=== PATIENT | female | born 1985 | race Caucasian/White ===

== ENCOUNTER 2017-02-08 22:53 | Inpatient (IN) | payer MEDICAID ==
[~2017-02-08] VITALS: Ht 157.5 cm; Wt 79.9 kg
[2017-02-08 23:31] LABS: BASOPHILS % (AUTO) 0.2 % (0.0-2.0); EOSINOPHILS % (AUTO) 0 % (1.0-6.0); HEMATOCRIT 42.5 % (36-46); HEMOGLOBIN 13.7 g/dL (12.0-16.0); LYMPHOCYTES # (AUTO) 0.9 K/uL (1.0-4.8); LYMPHOCYTES % (AUTO) 6.9 % (22.0-44.0); MEAN CORPUSCULAR HEMOGLOBIN 27.5 pg (26.0-34.0); MEAN CORPUSCULAR HGB CONC 32.2 G/dL (31.0-37.0); MEAN CORPUSCULAR VOLUME 85 fL (80-100); MONOCYTES # (AUTO) 0.2 K/uL (0.1-1.0); MONOCYTES % (AUTO) 1.8 % (2.0-9.0); NEUTROPHILS # (AUTO) 11.8 K/uL (1.8-7.7); PLATELET COUNT (AUTO) 420 K/uL (150-450); RED BLOOD CELL COUNT(AUTO) 4.98 MIL/uL (4.00-5.20); RED CELL DISTRIBUTION WIDTH 12.8 % (11.5-14.5)
[2017-02-08 23:39] LABS: NEUTROPHILS % (AUTO) 91.1 % (40.0-70.0)
[2017-02-08 23:45] LABS: ANION GAP 10 mmol/L (8-16); CALCIUM, TOTAL 8.8 mg/dL (8.8-10.5); CARBON DIOXIDE 29 mmol/L (22-29); CHLORIDE 99 mmol/L (98-107); CREATININE 0.72 mg/dL (0.60-1.30); GLOMERULAR FILTR. RATE CALC > 60 mL/min (>60); POTASSIUM 3.9 mmol/L (3.5-5.1); SODIUM SERUM 138 mmol/L (136-145); UREA NITROGEN, BLOOD 12 mg/dL (7-18)
[2017-02-08 23:51] LABS: ALANINE AMINOTRANSFERASE 44 U/L (12-78); AMYLASE 47 U/L (25-115); ASPARTATE AMINOTRANSFERASE 17 U/L (15-37); BILIRUBIN,TOTAL 0.6 mg/dL (0.1-1.0); TOTAL PROTEIN, SERUM 7.9 g/dL (6.4-8.2)
[2017-02-09 00:02] LABS: APPEARANCE,URINE CLEAR (CLEAR); GLUCOSE, URINE (UA) NEGATIVE (NEGATIVE); KETONES,URINE NEGATIVE (NEGATIVE); LEUKOCYTE ESTERASE ,URINE NEGATIVE (NEGATIVE); OCCULT BLOOD,URINE TRACE (NEGATIVE); PROTEIN,URINE POS 1+ (NEGATIVE)
[2017-02-09 00:03] LABS: ADD UA MICROSCOPIC YES
[2017-02-09 00:36] LABS: SQUAMOUS EPITHELIAL CELL,UR Rare /LPF (None Seen); WBC,URINE 0-2 /HPF (0-5)
[2017-02-09] MEDS ORDERED: MORPHINE SULFATE 4 MG/ML SYRINGE IVP ONE ×2 (00:45→04:30)
[2017-02-09] MEDS ORDERED: ONDANSETRON HCL 4 MG/2 ML VIAL IVP ONE (00:45)
[2017-02-09] MEDS ORDERED: SODIUM CHLORIDE 0.9% 1,000 ML IV ONE (00:45)
[2017-02-09] MEDS ORDERED: BARIUM SULFATE 0.1% SUSPENSION 450 ML BOTTLE PO ONE (01:00)
[2017-02-09] MEDS ORDERED: IOVERSOL 320 MG/ML 100 ML VIAL ONE (02:08)
[2017-02-09] MEDS ORDERED: SODIUM CHLORIDE 0.9% 100 ML ONE (02:08)
[2017-02-09] MEDS ORDERED: ONDANSETRON HCL 4 MG/2 ML VIAL IVP PRN (04:15)
[2017-02-09] MEDS ORDERED: 0.9% SODIUM CHLORIDE 10 ML SYRINGE IVP PRN (04:15)
[2017-02-09] MEDS ORDERED: MORPHINE SULFATE 4 MG/ML SYRINGE IVP PRN ×2 (04:15→05:45)
[2017-02-09] MEDS ORDERED: PIPERACILLIN/TAZO 3.375 GM/D5W 50 ML IV SCH (04:30)
[2017-02-09 04:33] LABS: INR 1.1 (0.9-1.1)
[2017-02-09 05:29] VITALS: BP 149/85
[2017-02-09] MEDS ORDERED: ONDANSETRON HCL 4 MG/2 ML VIAL IM PRN (05:45)
[2017-02-09] MEDS ORDERED: DEXTROSE 5%-0.45% SODIUM CHL 1,000 ML IV SCH (05:45)
[2017-02-09 08:18] VITALS: BP 111/77
[2017-02-09] MEDS ORDERED: BUPIVACAINE 0.25%/EPI 1:200,000/PF 10 ML VIAL ONE (08:49)
[2017-02-09] MEDS ORDERED: RINGERS SOLUTION,LACTATED 1,000 ML IV ONE (08:49)
[2017-02-09] MEDS ORDERED: OXYGEN THERAPY IH SCH (09:30)
[2017-02-09] MEDS ORDERED: MEPERIDINE-PF 25 MG/ML SYRINGE IVP PRN (09:30)
[2017-02-09] MEDS ORDERED: HYDROmorphone 2 MG/ML SYRINGE IVP PRN (09:30)
[2017-02-09] MEDS ORDERED: FentaNYL CITRATE-PF 100 MCG/2 ML VIAL IVP PRN (09:30)
[2017-02-09 11:00] VITALS: BP 118/76
[2017-02-09] MEDS ORDERED: HYDR-309 PO (14:38)
[2017-02-09] MEDS ORDERED: DOCU-119 PO (14:39)
[2017-02-09] MEDS ORDERED: PROPOFOL 1% 20 ML VIAL IVP ONE (15:14)
[2017-02-09] MEDS ORDERED: MIDAZOLAM HCL 2 MG/2 ML VIAL IVP ONE (15:14)
[2017-02-09] MEDS ORDERED: GLYCOPYRROLATE 0.2 MG/ML VIAL IM ONE (15:14)
[2017-02-09] MEDS ORDERED: DEXAMETHASONE SOD PHOS 4 MG/ML VIAL IVP ONE (15:14)
[2017-02-09] MEDS ORDERED: LIDOCAINE HCL/PF 1% 2 ML VIAL INJ ONE (15:14)
[2017-02-09] MEDS ORDERED: KETOROLAC TROMETHAMINE 60 MG/2 ML VIAL IM ONE (15:14)
[2017-02-09] MEDS ORDERED: NEOSTIGMINE METHYLSULFATE 1 MG/ML 10 ML VIAL IVP ONE (15:14)
[2017-02-09] MEDS ORDERED: FentaNYL CITRATE-PF 100 MCG/2 ML VIAL IVP ONE (15:14)
[2017-02-09] MEDS ORDERED: ROCURONIUM BROMIDE 10 MG/ML 5 ML VIAL IVP ONE (15:14)
[2017-02-09] MEDS ORDERED: METOCLOPRAMIDE HCL 5 MG/ML 2 ML VIAL IVP ONE (15:14)
== END 2017-02-09 15:15 | disposition home or self-care (01) | DRG 225 ==
LOC: EMS 22:54 → 6N 02-09 04:28
PROVIDERS: ADMIT Surgery; ATTEND Surgery
PROC: 0DTJ4ZZ Resection of Appendix, Percutaneous Endoscopic Approach (ICD-10-PCS; principal; 2017-02-09 09:00)
DX: K35.80 Unspecified acute appendicitis (principal); K76.0 Fatty (change of) liver, not elsewhere classified
CPT/HCPCS: 74177; 81025; 87081; 88304; 96361; 96365; 96375; 96376; 99285; J1100; J1885; J2250; J2270; J2405; J2543; J2704; J2765; J3010; J3490; J7030; J7050; J7120

== ENCOUNTER 2017-09-06 13:59 | Emergency (ER) | payer SELFPAY ==
[~2017-09-06] VITALS: Ht 157.5 cm; Wt 75.0 kg
[~2017-09-06 13:59] MED LIST: DOCU-119 PO; HYDR-309 PO
[2017-09-06 14:30] VITALS: BP 137/94
[2017-09-06] MEDS ORDERED: KETOROLAC TROMETHAMINE 60 MG/2 ML VIAL IM ONE (16:30)
[2017-09-06] MEDS ORDERED: HYDROCODONE/ACETAMINOPHEN 5-325 MG TABLET PO ONE (16:30)
== END 2017-09-06 17:39 | disposition home or self-care (01) ==
LOC: EMS 14:00
DX: S33.5XXA Sprain of ligaments of lumbar spine, initial encounter (principal); X58.XXXA Exposure to other specified factors, initial encounter; Y93.89 Activity, other specified; Y92.89 Other specified places as the place of occurrence of the external cause; Y99.8 Other external cause status
CPT/HCPCS: 96372; 99283; J1885